=== PATIENT | female | born 1935 | race Caucasian/White ===

== ENCOUNTER 2018-08-28 01:05 | Inpatient (IN) ==
[2018-08-28] MEDS ORDERED: SODIUM CHLORIDE 0.9% 1,000 ML IV STA (01:23)
[2018-08-28 02:00] LABS: Apearance,Urine CLEAR (Clear); Bilirubin,Urine Negative (Negative); Blood, Urine Negative (Negative); Glucose,Urine (UA) Negative (Negative); Hyaline Casts,Urine 1 /LPF (0-3); Ketones,Urine 5 mg/dL (Negative); Nitrite,Urine Negative (Negative); Protein,Urine Negative; RBC,Urine 1 /HPF (0-4); Urine Color Yellow (Yellow); Urine Urobilinogen < 2.0 EU/DL (0.2-1.0); WBC,Urine 1 /HPF (0-6)
[2018-08-28 02:03] LABS: Bilirubin,Total 0.7 MG/DL (0.2-1.0); Calcium 9.6 MG/DL (8.5-10.1); Osmolality,Calculated 232.8 MOS/KG (273-304); Potassium 3.5 MMOL/L (3.5-5.1); Total Protein 7.2 G/DL (6.4-8.3)
[2018-08-28 02:27] LABS: Basophils % 0.1 % (0.0-0.8); Eosinophils % 0.4 % (0.00-10.9); Hematocrit 37.7 VOL% (35.7-47.0); Hemoglobin 13.3 GM/DL (12.0-16.0); Immature Granulocytes % 0.1 %; Immature Granulocytes Absolute 0.01 #; Lymphocytes # 1.1 10*3/uL (1.4-4.0); Lymphocytes % 14.2 % (21.3-54.2); Mean Corpuscular HGB Conc 35.3 GM/DL (32-36); Mean Corpuscular Hemoglobin 29 PG (27-34); Mean Corpuscular Volume 83.2 FL (87-102); Mean Platelet Volume 11.4 FL (9.6-12.0); Monocytes # 0.9 10*3/uL (0.11-0.8); Monocytes % 11.8 % (1.7-12.7); Neutrophils # 5.5 10*3/uL (1.4-7.4); Neutrophils % 73.4 % (38.7-73.9); Platelet Count 262 T/CUMM (130-400); Red Blood Count 4.53 MC/CUMM (3.8-5.5); White Blood Count 7.5 T/CUMM (4-12)
[2018-08-28] MEDS ORDERED: ALBUTEROL 2.5 MG/3 ML NEB RESP TX PRN (02:59)
[2018-08-28] MEDS ORDERED: ONDANSETRON 4 MG/2 ML VIAL IV PRN (02:59)
[2018-08-28] MEDS: SODIUM CHLORIDE 0.9% 1,000 ML IV SCH ×2 (04:30→17:22)
[2018-08-28] MEDS ORDERED: cloNIDine 0.1 MG TABLET PO PRN (08:22)
[2018-08-28] MEDS ORDERED: PANTOPRAZOLE 40 MG VIAL IV SCH (09:00)
[2018-08-28] MEDS: LEVOTHYROXINE 88 MCG TABLET PO SCH (09:27)
[2018-08-28] MEDS: ASPIRIN EC 81 MG TABLET PO SCH (09:27)
[2018-08-28] MEDS: LOSARTAN 50 MG TABLET PO SCH (09:27)
[2018-08-28] MEDS: CALCIUM (CARBONATE)/VITAMIN D 500 MG-200 UNIT TABLET PO SCH ×2 (09:28→21:53)
[2018-08-28] MEDS: PANTOPRAZOLE 40 MG TABLET PO SCH (09:28)
[2018-08-28 10:21] LABS: Calcium 8.9 MG/DL (8.5-10.1); Osmolality,Calculated 236.5 MOS/KG (273-304); Potassium 3.3 MMOL/L (3.5-5.1)
[2018-08-29 05:22] LABS: Basophils % 0.1 % (0.0-0.8); Hematocrit 38.8 VOL% (35.7-47.0); Hemoglobin 13.7 GM/DL (12.0-16.0); Immature Granulocytes % 0.8 %; Immature Granulocytes Absolute 0.07 #; Lymphocytes % 11.8 % (21.3-54.2); Mean Corpuscular HGB Conc 35.3 GM/DL (32-36); Mean Corpuscular Hemoglobin 30 PG (27-34); Mean Platelet Volume 11.2 FL (9.6-12.0); Monocytes % 11.8 % (1.7-12.7); Neutrophils # 6.3 10*3/uL (1.4-7.4); Neutrophils % 75.5 % (38.7-73.9); Platelet Count 268 T/CUMM (130-400); Red Blood Count 4.62 MC/CUMM (3.8-5.5); Red Cell Distribution Width 12.1 % (9.3-17.3); White Blood Count 8.3 T/CUMM (4-12)
[2018-08-29 05:34] LABS: Calcium 9.3 MG/DL (8.5-10.1); Osmolality,Calculated 241.1 MOS/KG (273-304); Potassium 3.3 MMOL/L (3.5-5.1)
[2018-08-29] MEDS: SODIUM CHLORIDE 0.9% 1,000 ML IV SCH ×2 (06:28→19:45)
[2018-08-29] MEDS: LOSARTAN 50 MG TABLET PO SCH (09:09)
[2018-08-29] MEDS: ASPIRIN EC 81 MG TABLET PO SCH (09:09)
[2018-08-29] MEDS: CALCIUM (CARBONATE)/VITAMIN D 500 MG-200 UNIT TABLET PO SCH ×2 (09:10→22:40)
[2018-08-29] MEDS: PANTOPRAZOLE 40 MG TABLET PO SCH (09:10)
[2018-08-29] MEDS: LEVOTHYROXINE 88 MCG TABLET PO SCH (09:12)
[2018-08-29] MEDS ORDERED: MAGNESIUM SULF RIDER 4 GM in PREMIX 1 EACH IV ONE (09:39)
[2018-08-29] MEDS: POTASSIUM CHLORIDE 20 MEQ TABLET PO SCH ×3 (11:30→18:20)
[2018-08-30 05:22] LABS: Basophils % 0.3 % (0.0-0.8); Eosinophils # 0.1 10*3/uL (0.0-0.87); Eosinophils % 1.2 % (0.00-10.9); Hematocrit 36.3 VOL% (35.7-47.0); Hemoglobin 12.7 GM/DL (12.0-16.0); Immature Granulocytes % 0.3 %; Immature Granulocytes Absolute 0.02 #; Lymphocytes # 1.1 10*3/uL (1.4-4.0); Lymphocytes % 16.7 % (21.3-54.2); Mean Corpuscular Hemoglobin 30 PG (27-34); Mean Corpuscular Volume 85.2 FL (87-102); Mean Platelet Volume 10.7 FL (9.6-12.0); Monocytes # 0.9 10*3/uL (0.11-0.8); Monocytes % 13.3 % (1.7-12.7); Neutrophils # 4.6 10*3/uL (1.4-7.4); Neutrophils % 68.2 % (38.7-73.9); Platelet Count 226 T/CUMM (130-400); Red Blood Count 4.26 MC/CUMM (3.8-5.5); Red Cell Distribution Width 12.5 % (9.3-17.3); White Blood Count 6.7 T/CUMM (4-12)
[2018-08-30 05:40] LABS: Calcium 8.5 MG/DL (8.5-10.1); Osmolality,Calculated 253.2 MOS/KG (273-304); Potassium 3.9 MMOL/L (3.5-5.1)
[2018-08-30] MEDS: CALCIUM (CARBONATE)/VITAMIN D 500 MG-200 UNIT TABLET PO SCH ×2 (08:31→20:58)
[2018-08-30] MEDS: ASPIRIN EC 81 MG TABLET PO SCH (08:31)
[2018-08-30] MEDS: PANTOPRAZOLE 40 MG TABLET PO SCH (08:31)
[2018-08-30] MEDS: LOSARTAN 50 MG TABLET PO SCH (08:31)
[2018-08-30] MEDS: LEVOTHYROXINE 88 MCG TABLET PO SCH (08:31)
[2018-08-30] MEDS ORDERED: TEMAZEPAM 15 MG CAPSULE PO PRN (08:50)
[2018-08-30] MEDS: CLOPIDOGREL 75 MG TABLET PO SCH (09:32)
[2018-08-30] MEDS: FERROUS GLUCONATE 324 MG TABLET PO SCH ×2 (09:32→20:58)
[2018-08-30] MEDS: amLODIPine 10 MG TABLET PO SCH (09:32)
[2018-08-30] MEDS: SODIUM CHLORIDE 0.9% 1,000 ML IV SCH (09:33)
[2018-08-30] MEDS: NORTRIPTYLINE 25 MG CAPSULE PO SCH ×2 (14:37→20:58)
[2018-08-30] MEDS: MOMETASONE 0.1% CREAM 15 GM TUBE TOP SCH ×2 (14:37→21:00)
[2018-08-30] MEDS: GEMFIBROZIL 600 MG TABLET PO SCH (15:43)
[2018-08-31] MEDS: SODIUM CHLORIDE 0.9% 1,000 ML IV SCH (03:22)
[2018-08-31 04:38] LABS: Calcium 8.5 MG/DL (8.5-10.1); Osmolality,Calculated 266.2 MOS/KG (273-304); Potassium 3.5 MMOL/L (3.5-5.1)
[2018-08-31] MEDS: LOSARTAN 50 MG TABLET PO SCH (08:32)
[2018-08-31] MEDS: ASPIRIN EC 81 MG TABLET PO SCH (08:32)
[2018-08-31] MEDS: LEVOTHYROXINE 88 MCG TABLET PO SCH (08:32)
[2018-08-31] MEDS: GEMFIBROZIL 600 MG TABLET PO SCH ×2 (08:33→16:17)
[2018-08-31] MEDS: NORTRIPTYLINE 25 MG CAPSULE PO SCH ×2 (08:33→22:09)
[2018-08-31] MEDS: PANTOPRAZOLE 40 MG TABLET PO SCH (08:33)
[2018-08-31] MEDS: CALCIUM (CARBONATE)/VITAMIN D 500 MG-200 UNIT TABLET PO SCH ×2 (08:33→22:09)
[2018-08-31] MEDS: FERROUS GLUCONATE 324 MG TABLET PO SCH ×2 (08:33→22:09)
[2018-08-31] MEDS: MOMETASONE 0.1% CREAM 15 GM TUBE TOP SCH ×2 (08:34→22:45)
[2018-08-31] MEDS: CLOPIDOGREL 75 MG TABLET PO SCH (08:37)
[2018-08-31] MEDS: amLODIPine 10 MG TABLET PO SCH (08:37)
[2018-08-31] MEDS ORDERED: BISACODYL 5 MG TABLET PO PRN (21:21)
[2018-09-01] MEDS: SODIUM CHLORIDE 0.9% 1,000 ML IV SCH (04:29)
[2018-09-01] MEDS: amLODIPine 10 MG TABLET PO SCH (08:10)
[2018-09-01] MEDS: LEVOTHYROXINE 88 MCG TABLET PO SCH (08:10)
[2018-09-01] MEDS: LOSARTAN 50 MG TABLET PO SCH (08:10)
[2018-09-01] MEDS: PANTOPRAZOLE 40 MG TABLET PO SCH (08:10)
[2018-09-01] MEDS: GEMFIBROZIL 600 MG TABLET PO SCH (08:10)
[2018-09-01] MEDS: NORTRIPTYLINE 25 MG CAPSULE PO SCH (08:10)
[2018-09-01] MEDS: CALCIUM (CARBONATE)/VITAMIN D 500 MG-200 UNIT TABLET PO SCH (08:11)
[2018-09-01] MEDS: FERROUS GLUCONATE 324 MG TABLET PO SCH (08:11)
[2018-09-01] MEDS: ASPIRIN EC 81 MG TABLET PO SCH (08:11)
[2018-09-01] MEDS: MOMETASONE 0.1% CREAM 15 GM TUBE TOP SCH (08:11)
[2018-09-01 08:49] LABS: Calcium 8.7 MG/DL (8.5-10.1); Osmolality,Calculated 260.7 MOS/KG (273-304); Potassium 3.3 MMOL/L (3.5-5.1)
[2018-09-01 08:52] VITALS: BP 120/82
[2018-09-01] MEDS ORDERED: POTASSIUM CHLORIDE 20 MEQ TABLET PO PRN (08:52)
[2018-09-01] MEDS ORDERED: DOCUSATE SODIUM 100 MG CAPSULE PO SCH (09:00)
[2018-09-01] MEDS ORDERED: MAGNESIUM OXIDE 400 MG TABLET PO ONE (09:47)
[2018-09-01 11:38] LABS: Calcium 8.5 MG/DL (8.5-10.1); Osmolality,Calculated 261.5 MOS/KG (273-304); Potassium 3.6 MMOL/L (3.5-5.1)
== END 2018-09-01 13:22 | disposition home health service (06) | DRG 641 ==
LOC: EDUNIT# → EDBD → N.ED 01:05 → N.EDINP 02:59 → SUATTDRO 03:00 → N.CC 03:57 → N.5E 08-30 15:09
PROVIDERS: ADMIT Internal Medicine; ATTEND Internal Medicine